=== PATIENT | female | born 1945 | race Caucasian/White ===

== ENCOUNTER 2019-05-10 11:50 | Outpatient (RCR) | payer MEDICARE, OTHER, SELFPAY ==
[2019-02-14 16:40] LABS: INR 2.6; Prothrombin Time 27.6 Seconds (11.1-14.7)
[2019-04-01 11:40] LABS: INR 2.1
[2019-05-10 12:24] LABS: INR 2.3; Prothrombin Time 24.7 Seconds (11.1-14.7)
== END 2019-05-15 23:59 | disposition home or self-care (01) ==
LOC: ANHLAB 11:50
PROVIDERS: Visit Provider Internal Medicine Cardiovascular Disease
DX: I48.91 Unspecified atrial fibrillation (principal); Z79.01 Long term (current) use of anticoagulants
CPT/HCPCS: 36415; 85610

== ENCOUNTER 2019-08-29 13:10 | Outpatient (RCR) | payer MEDICARE, OTHER, SELFPAY ==
[2019-06-02 10:34] LABS: INR 2.5; Prothrombin Time 26.3 Seconds (11.1-14.7)
[2019-07-11 14:56] LABS: INR 2.7; Prothrombin Time 27.9 Seconds (11.1-14.7)
[2019-08-29 13:43] LABS: INR 2.5; Prothrombin Time 26.4 Seconds (11.1-14.7)
== END 2019-08-31 23:59 | disposition home or self-care (01) ==
LOC: ANHLAB 13:10
PROVIDERS: Visit Provider Internal Medicine Cardiovascular Disease
DX: Z51.81 Encounter for therapeutic drug level monitoring (principal); I48.91 Unspecified atrial fibrillation; Z79.01 Long term (current) use of anticoagulants
CPT/HCPCS: 36415; 85610

== ENCOUNTER 2019-12-22 09:52 | Outpatient (RCR) | payer MEDICARE, OTHER, SELFPAY ==
[2019-10-11 16:41] LABS: INR 2.5; Prothrombin Time 26.9 Seconds (11.1-14.7)
[2019-10-16 15:55] LABS: INR 2.3; Prothrombin Time 24.6 Seconds (11.1-14.7)
[2019-10-24 13:32] LABS: INR 3.1; Prothrombin Time 31.1 Seconds (11.1-14.7)
[2019-11-04 12:47] LABS: INR 2.8; Prothrombin Time 29.1 Seconds (11.1-14.7)
[2019-12-05 16:25] LABS: INR 4.1; Prothrombin Time 39.5 Seconds (11.1-14.7)
[2019-12-22 10:49] LABS: Prothrombin Time 30.6 Seconds (11.1-14.7)
== END 2020-01-09 23:59 | disposition home or self-care (01) ==
LOC: ANHLAB 09:52
PROVIDERS: PCP Internal Medicine Cardiovascular Disease; Visit Provider Internal Medicine Cardiovascular Disease
DX: Z51.81 Encounter for therapeutic drug level monitoring (principal); I48.91 Unspecified atrial fibrillation; I69.398 Other sequelae of cerebral infarction; R20.9 Unspecified disturbances of skin sensation; Z79.01 Long term (current) use of anticoagulants
CPT/HCPCS: 36415; 85610

== ENCOUNTER 2020-02-13 13:01 | Outpatient (CLI) | payer MEDICARE, OTHER, SELFPAY ==
[2020-02-13 13:31] LABS: Add Urine Microscopic? NO; Appearance Urine Clear (Clear); Bilirubin Urine Negative (Negative); Blood Urine Negative (Negative); Color Urine Straw (Yellow); Glucose Urine UA Negative (Negative); Ketones Urine Negative (Negative); Leukocyte Esterase Ur Negative LEU/UL (NEGATIVE); Nitrate Urine Negative (Negative); Protein Urine Negative (Negative); Specific Grav Ur 1.006 (1.001-1.035); Squamous Epithelial Cell Urine Rare /hpf (Few); Urobilinogen Urine Negative mg/dL (<2.0); WBC Urine 0-3 /hpf (0-3)
== END 2020-02-13 13:02 | disposition home or self-care (01) ==
DX: N39.0 Urinary tract infection, site not specified (principal)
CPT/HCPCS: 36415; 81003; 85610; 87086

== ENCOUNTER 2020-03-16 10:43 | Emergency (ER) | payer MEDICARE, OTHER, SELFPAY ==
--- NOTE | ~2020-03-16 | CT_ITS ---
EXAMINATION: CT cervical spine wo con DATE: 03/16/2020 11:53 INDICATION: Neck pain post injury TECHNIQUE: Computed tomography (CT) of the cervical spine was performed without intravenous contrast. Automated exposure control and iterative reconstruction technique were employed. The dose-length pro duct was 130.92 mGy-cm. COMPARISON: None FINDINGS: Mild reversal of the normal cervical lordosis. 2-3 mm anterolisthesis C3 on C4. Vertebral body height s are normal. No fracture. Moderate disc height loss at C4-C5, C5-C6, C6-C7 and T2-T3 and mild disc h eight loss at C3-C4, C7-T1 and T1-T2. Atherosclerotic calcification is at the bilateral carotid bulbs . Cervical soft tissues are otherwise unremarkable. Visualized airway and apices of lungs are clear. The following disc levels are specifically discussed: C2-C3: Disc is bulging. There is mild bilateral uncovertebral joint osteoarthritis. There is old righ t and moderate left facet joint osteoarthritis. There is no neural foraminal stenosis. There is mild central canal stenosis. C3-C4: Disc is bulging. There is mild bilateral uncovertebral joint osteoarthritis. There is mild lef t and severe right facet joint osteoarthritis. There is mild right neural foraminal stenosis. There i s mild central canal stenosis. C4-C5: Disc is bulging. There is moderate bilateral uncovertebral joint osteoarthritis. There is mild bilateral facet joint osteoarthritis. There is minimal bilateral neural foraminal stenosis. There is mild central canal stenosis. C5-C6: Posterior disc osteophyte complex. There is severe bilateral uncovertebral joint osteoarthriti s. There is mild bilateral facet joint osteoarthritis. There is mild bilateral neural foraminal steno sis. There is mild central canal stenosis. C6-C7: Disc is bulging. There is mild right and moderate left uncovertebral joint osteoarthritis. The re is mild bilateral facet joint osteoarthritis. There is mild bilateral neural foraminal stenosis. T here is mild central canal stenosis. C7-T1: Disc is bulging. There is mild bilateral uncovertebral joint osteoarthritis. There is mild rig ht and severe left facet joint osteoarthritis. There is mild left and minimal right neural foraminal stenosis. There is mild central canal stenosis. IMPRESSION: 1. Moderate cervical spondylosis. No acute osseous abnormality. Reviewed, dictated and finalized at location A. 'S CUSTOM HAIR PIECE CONSULTANT
--- NOTE | ~2020-03-16 | CT_ITS ---
EXAMINATION: CT brain wo con DATE: 03/16/2020 11:53 INDICATION: Head injury while anticoagulated. TECHNIQUE: Computed tomography (CT) of the head was performed without intravenous contrast. Sagittal and coronal reconstructions were performed. The mA was adjusted according to patient size. Iterative reconstruction technique was employed. The dose-length product was 605.33 mGy-cm. COMPARISON: head CT dated 06/16/2018 FINDINGS: No calvarial fracture. 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 No acute in tracranial hemorrhage, acute infarction or abnormal extra axial fluid collection. There is mild scatt ered white matter hypoattenuation consistent with chronic small vessel ischemic disease. Ventricles are normal and symmetric. No mass/mass effect. Changes of bilateral intraocular lens replacement. The orbits and mastoid air cells are normal. Mild mucosal thickening the left ethmoid sinus. 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 IMPRESSION: 1. No fracture or acute intracranial process. 2. 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 Reviewed, dictated and finalized at location A. LOADER
[2020-03-16 10:54] VITALS: BP 154/94; PULSE 81; RESP 18; TEMP 36.6; O2SAT 97
--- NOTE | 2020-03-16 11:21 | ED.HEATRA ---
HPI - Head Injury General Chief complaint: Head Injury Stated complaint: head injury Time Seen by Provider: 03/16/20 10:53 Source: patient Mode of arrival: ambulatory Limitations: no limitations History of Present Illness HPI Narrative: This is a 75-year-old female that presents the emergency department after a head injury this morning. Reports she was in pain attention and accidentally walked into a door. Reports that she has felt nauseous. Reports she also is starting to feel some tingling around her lips. She called her maintenance controller who suggested she come to the ED due to being on Coumadin. Reports a mild headache and some pain in her neck. Patient denies vision changes, vomiting, numbness, or weakness. Related Data Home Medications Medication Instructions Recorded Confirmed aspirin [Adult Aspirin] 81 mg PO DAILY 03/16/20 beclomethasone dipropionate [Qvar] mcg INHALATION 03/16/20 cranberry 6,000 mg PO EVERY OTHER DAY 03/16/20 diltiazem HCl 120 mg PO HS 03/16/20 fluticasone propionate 2 spray INTRANASAL DAILY 03/16/20 insulin aspart U-100 [Novolog 1 sliding scale dose SUBCUT 03/16/20 U-100 Insulin aspart] USEASDIRECTD insulin glargine [Lantus U-100 8 unit SUBCUT TID 03/16/20 Insulin] levalbuterol tartrate [Xopenex HFA] 1 puff INHALATION PRN PRN 03/16/20 lisinopril 5 mg PO HS 03/16/20 metoclopramide HCl [Reglan] 10 mg PO TID PRN 03/16/20 omega 4-bsf-hoi-fish oil [Fish Oil] cap 03/16/20 omeprazole 40 mg PO BID 03/16/20 simvastatin [Zocor] 20 mg PO HS 03/16/20 warfarin [Coumadin] 2 mg PO DAILY 03/16/20 03/16/20 warfarin [Coumadin] 4 mg PO DAILY 03/16/20 Allergies Allergy/AdvReac Type Severity Reaction Status Date / Time amoxicillin Allergy Mild Dyspnea / Verified 03/16/20 10:56 SOB codeine Allergy Unknown Shakiness Verified 03/16/20 10:56 nitrofurantoin Allergy Abdominal Verified 03/16/20 10:56 [From Macrodantin] Pain Sulfa (Sulfonamide Allergy Abdominal Verified 03/16/20 10:56 Antibiotics) Pain SURGICAL TAPE Allergy Mild Unknown Uncoded 03/16/20 10:56 HEPATITIS B VACCINE Allergy Unknown Unknown Uncoded 03/16/20 10:56 Review of Systems Review of Systems: Narrative: CONSTITUTIONAL: Denies fever EYES: Denies visual changes GASTROINTESTINAL: Denies vomiting MUSCULOSKELETAL: Reports joint pain, and myalgia. NEUROLOGIC: Reports headache. Denies numbness, or weakness. All systems reviewed & are unremarkable except as noted in HPI and below PMFSH Past Medical History Medical History (Updated 03/16/20 @ 13:01 by Leslie Blandon PA-C) DVT (deep venous thrombosis) History of diabetes mellitus History of gastroesophageal reflux (GERD) History of hyperlipidemia History of hypertension Surgical History Surgical History (Updated 03/06/19 @ 21:51 by Vasquez Gaston PA-C) History of orthopedic surgery Social History Social History (Updated 03/06/19 @ 21:51 by Vasquez Gaston PA-C) Smoking status: Never smoker Gender identity (if verbalized by the patient): Female Exam Narrative: Exam Narrative: GENERAL: Well-appearing, well-nourished, and in no acute distress. HEAD: Normocephalic, atraumatic. EYES: Right pupil RRLA and EOMI. Left pupil is irregular, but reactive to light. Patient reports history of eye surgery on this eye ENT: Nares clear, no rhinorrhea or epistaxis. Mucous membranes moist. Oropharynx without tonsillar hypertrophy exudate or other lesions. Bilateral TMs pearly trevino non-bulging NECK: Supple. No adenopathy or masses. No carotid bruits or JVD CHEST: Clear to auscultation. No respiratory distress. No wheezes rales or rhonchi HEART: Regular rate and rhythm. No murmur heard. Normal peripheral pulses. EXTREMITIES: Normal range of motion. No edema. Strength equal in bilateral upper and lower extremities (5/5) SKIN: Warm, dry, no rash. NEURO: No focal deficits. Alert and oriented x3. Cranial nerves II through XII grossly intact PSYCH: Normal mood and affect C
[2020-03-16] MEDS: ONDANSETRON HCL ODT 4 MG TABLET PO (11:26)
[2020-03-16 12:26] VITALS: BP 133/73; PULSE 87; RESP 18; TEMP 36.3; O2SAT 99
[2020-03-16 12:28] VITALS: O2SAT 97
--- NOTE | 2020-03-16 12:33 | PC.NURSE ---
States she is no longer having nausea.
[2020-03-16 13:03] VITALS: BP 124/70; PULSE 82; RESP 16; O2SAT 97
== END 2020-03-16 13:03 | disposition home or self-care (01) ==
PROVIDERS: Emergency Provider Emergency Medicine; PCP Internal Medicine
DX: S09.90XA Unspecified injury of head, initial encounter (principal); W22.8XXA Striking against or struck by other objects, initial encounter; E11.9 Type 2 diabetes mellitus without complications; K21.9 Gastro-esophageal reflux disease without esophagitis; E78.5 Hyperlipidemia, unspecified; I10 Essential (primary) hypertension; Z86.718 Personal history of other venous thrombosis and embolism; Z79.01 Long term (current) use of anticoagulants
CPT/HCPCS: 70450; 72125; 99284; A9270

== ENCOUNTER 2020-04-06 13:25 | Outpatient (RCR) | payer MEDICARE, OTHER, SELFPAY ==
[2020-01-17 18:20] LABS: Prothrombin Time 30.4 Seconds (11.1-14.7)
[2020-02-13 13:33] LABS: INR 3.2; Prothrombin Time 33.1 Seconds (11.1-14.7)
[2020-03-02 13:41] LABS: INR 2.5; Prothrombin Time 27.7 Seconds (11.1-14.7)
[2020-04-06 14:06] LABS: INR 2.8
== END 2020-04-16 23:59 | disposition home or self-care (01) ==
LOC: ANHLAB 13:25
PROVIDERS: PCP Internal Medicine Cardiovascular Disease; Visit Provider Internal Medicine Cardiovascular Disease
DX: Z51.81 Encounter for therapeutic drug level monitoring (principal); I48.91 Unspecified atrial fibrillation; Z79.01 Long term (current) use of anticoagulants
CPT/HCPCS: 36415; 85610

== ENCOUNTER 2020-07-25 17:00 | Outpatient (RCR) | payer MEDICARE, SELFPAY ==
[2020-05-21 17:15] LABS: Prothrombin Time 31.4 Seconds (11.1-14.7)
[2020-06-29 12:37] LABS: INR 3.3; Prothrombin Time 33.7 Seconds (11.1-14.7)
[2020-07-12 13:06] LABS: INR 2.9; Prothrombin Time 31.2 Seconds (11.1-14.7)
[2020-07-25 17:46] LABS: INR 2.8
== END 2020-08-19 23:59 | disposition home or self-care (01) ==
LOC: ANHLAB 17:00
PROVIDERS: PCP Internal Medicine; Visit Provider Internal Medicine Cardiovascular Disease
DX: Z51.81 Encounter for therapeutic drug level monitoring (principal); I69.398 Other sequelae of cerebral infarction; R20.9 Unspecified disturbances of skin sensation; Z79.01 Long term (current) use of anticoagulants
CPT/HCPCS: 36415; 85610

== ENCOUNTER 2020-09-24 17:07 | Outpatient (RCR) | payer MEDICARE, SELFPAY ==
[2020-08-24 13:01] LABS: INR 2.1; Prothrombin Time 24.5 Seconds (11.1-14.7)
[2020-09-24 17:49] LABS: INR 2.8; Prothrombin Time 29.8 Seconds (11.1-14.7)
== END 2020-11-22 23:59 | disposition home or self-care (01) ==
LOC: ANHLAB 17:07
PROVIDERS: PCP Internal Medicine; Visit Provider Internal Medicine Cardiovascular Disease
DX: Z51.81 Encounter for therapeutic drug level monitoring (principal); I69.398 Other sequelae of cerebral infarction; R20.9 Unspecified disturbances of skin sensation; Z79.01 Long term (current) use of anticoagulants
CPT/HCPCS: 36415; 85610

== ENCOUNTER 2021-01-16 17:38 | Outpatient (RCR) | payer MEDICARE, SELFPAY ==
[2020-10-23 17:10] LABS: INR 3.3; Prothrombin Time 32.2 Seconds (11.1-14.7)
[2020-11-07 16:35] LABS: INR 3.3; Prothrombin Time 32.6 Seconds (11.1-14.7)
[2020-11-20 18:08] LABS: INR 3.6; Prothrombin Time 34.7 Seconds (11.1-14.7)
[2020-12-03 18:13] LABS: INR 2.2; Prothrombin Time 24.2 Seconds (11.1-14.7)
[2020-12-18 18:32] LABS: INR 2.7; Prothrombin Time 27.6 Seconds (11.1-14.7)
[2021-01-16 18:14] LABS: Prothrombin Time 37.5 Seconds (11.1-14.7)
== END 2021-01-21 23:59 | disposition home or self-care (01) ==
LOC: ANHLAB 17:38
PROVIDERS: PCP Internal Medicine; Visit Provider Internal Medicine Cardiovascular Disease
DX: I69.398 Other sequelae of cerebral infarction (principal); R20.9 Unspecified disturbances of skin sensation; Z79.01 Long term (current) use of anticoagulants
CPT/HCPCS: 36415; 85610

== ENCOUNTER 2021-02-24 12:52 | Outpatient (CLI) | payer MEDICARE, SELFPAY ==
[2021-02-24 13:40] LABS: Anion Gap 4 mmol/L (8-16); Blood Urea Nitrogen 25 mg/dL (7-17); Calcium 9.5 mg/dL (8.4-10.2); Carbon Dioxide 28 mmol/L (22-30); Chloride 96 mmol/L (98-107); Estimated Glomerular Filt Rate 54; Glucose 279 mg/dL (65-110); Magnesium 1.8 mg/dL (1.6-2.3); Potassium 5.5 mmol/L (3.4-5.0); Sodium 128 mmol/L (137-145)
== END 2021-02-24 12:53 | disposition home or self-care (01) ==
PROVIDERS: PCP Internal Medicine
DX: R25.2 Cramp and spasm (principal)
CPT/HCPCS: 36415; 80048; 83735

== ENCOUNTER 2021-03-10 12:54 | Outpatient (CLI) | payer MEDICARE, SELFPAY ==
[2021-03-10 14:10] LABS: Anion Gap 4 mmol/L (8-16); Blood Urea Nitrogen 16 mg/dL (7-17); Calcium 9.4 mg/dL (8.4-10.2); Carbon Dioxide 29 mmol/L (22-30); Chloride 104 mmol/L (98-107); Estimated Glomerular Filt Rate > 60; Glucose 102 mg/dL (65-110); Potassium 4.8 mmol/L (3.4-5.0); Sodium 137 mmol/L (137-145)
== END 2021-03-10 12:55 | disposition home or self-care (01) ==
LOC: ANHLAB 13:07
PROVIDERS: PCP Internal Medicine
DX: E78.5 Hyperlipidemia, unspecified (principal); E10.9 Type 1 diabetes mellitus without complications; I25.10 Atherosclerotic heart disease of native coronary artery without angina pectoris
CPT/HCPCS: 36415; 80048

== ENCOUNTER 2021-04-21 17:15 | Outpatient (RCR) | payer MEDICARE, SELFPAY ==
[2021-01-23 13:16] LABS: INR 4.3; Prothrombin Time 40.2 Seconds (11.1-14.7)
[2021-01-30 18:04] LABS: INR 2.7; Prothrombin Time 27.7 Seconds (11.1-14.7)
[2021-02-24 13:57] LABS: INR 2.4; Prothrombin Time 25.7 Seconds (11.1-14.7)
[2021-03-25 12:29] LABS: INR 1.7
[2021-04-21 17:48] LABS: INR 2.3; Prothrombin Time 24.5 Seconds (11.1-14.7)
== END 2021-04-23 23:59 | disposition home or self-care (01) ==
LOC: ANHLAB 17:15
PROVIDERS: PCP Internal Medicine; Visit Provider Internal Medicine Cardiovascular Disease
DX: Z51.81 Encounter for therapeutic drug level monitoring (principal); Z79.01 Long term (current) use of anticoagulants
CPT/HCPCS: 36415; 80048; 83735; 85610

== ENCOUNTER 2021-05-27 11:15 | Emergency (ER) | payer MEDICARE, SELFPAY ==
[2021-05-27] VITALS (14 sets, daily range): BP systolic 125–138; BP diastolic 66–82; PULSE 65–84; RESP 14–24; TEMP 36.5; O2SAT 82–100
--- NOTE | ~2021-05-27 | XR_ITS ---
EXAMINATION: XR chest 2V EXAM DATE: 05/27/2021 12:37 INDICATION: pacemaker, tingling, chest discomfort. TECHNIQUE: Frontal and lateral projections of the chest obtained and reviewed. Comparison is made to prior examination from 06/16/2018. FINDINGS: There is a dual lead pacemaker/AICD seen with leads projecting over the expected locations of the right atrial appendage and right ventricle. The lungs are hyperinflated which can be seen wit h chronic obstructive pulmonary disease (a clinical diagnosis of functional impairment), but is not d iagnostic of it. Cardiomediastinal silhouette is normal. No confluent consolidation, pneumothorax or pleural effusion suspected. There are no osseous abnormalities identified. IMPRESSION: Chronic hyperinflation. Reviewed, dictated and finalized at location A. RIAL HANDLING CREW SUPERVISOR IMPRESSION: Chronic hyperinflation.
--- NOTE | 2021-05-27 11:36 | PC.NURSE ---
Patient states that she was at her doctor's office this morning and had a spot removed from her hand. physician used lidocaine as numbing agent to hand. reports that after she left she went to get blood drawn and while waiting she noticed that she had some tingling and numbness to lips. denies any difficulty breathing or any other neurological deficits. states she took a librium [employer] to ED d/t hx of anxiety
--- NOTE | 2021-05-27 12:26 | ECG_ITS ---
Measurements Intervals [place] Rate: 75 P: 77 TX: 159 QRS: 15 QRSD: 85 T: 63 QT: 405 QTc: 454 Interpretive Statements SINUS RHYTHM DELAYED PRECORDIAL R/S TRANSITION BORDERLINE ECG Electronically Signed On 05-27-2021 13:55:06 SHAKER PLATE OPERATOR by Chapito Oliver D.O.
--- NOTE | 2021-05-27 12:57 | ED.ALLEREA ---
HPI - Allergic Reaction General Chief complaint: Allergic Reaction Stated complaint: Possible Allergic Reaction Time Seen by Provider: 05/27/21 12:03 Source: patient and RN notes reviewed Mode of arrival: ambulatory Limitations: no limitations History of Present Illness HPI narrative: This is a 76 year old female with history of diabetes mellitus, pacemaker, chronic anticoagulation who presents for evaluation of possible allergic reaction. She went to see her metallographic technician today to remove a lesion from her right hand. She reports they used lidocaine during the procedure and she was fine. She was at hospital 30 minutes later after getting blood drawn, and she developed tingling to her lips and tongue. She denies associated swelling, rash, itching, chest pain, coughing or shortness of breath. She states this episodes reminds of previous episodes she had before her pacemaker placement. 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 Today she did not experience lightheadedness. She is also not sure if this was caused by lidocaine. Related Data Home Medications Medication Instructions Recorded Confirmed aspirin [Adult Aspirin] 81 mg PO DAILY 03/16/20 beclomethasone dipropionate [Qvar] mcg INHALATION 03/16/20 cranberry 6,000 mg PO EVERY OTHER DAY 03/16/20 diltiazem HCl 120 mg PO HS 03/16/20 fluticasone propionate 2 spray INTRANASAL DAILY 03/16/20 insulin aspart U-100 [Novolog 1 sliding scale dose SUBCUT 03/16/20 U-100 Insulin aspart] USEASDIRECTD insulin glargine [Lantus U-100 8 unit SUBCUT TID 03/16/20 Insulin] levalbuterol tartrate [Xopenex HFA] 1 puff INHALATION PRN PRN 03/16/20 lisinopril 5 mg PO HS 03/16/20 metoclopramide HCl [Reglan] 10 mg PO TID PRN 03/16/20 omega 0-npe-rxe-fish oil [Fish Oil] cap 03/16/20 omeprazole 40 mg PO BID 03/16/20 simvastatin [Zocor] 20 mg PO HS 03/16/20 warfarin [Coumadin] 2 mg PO DAILY 03/16/20 03/16/20 warfarin [Coumadin] 4 mg PO DAILY 03/16/20 Allergies Allergy/AdvReac Type Severity Reaction Status Date / Time amoxicillin Allergy Mild Dyspnea / Verified 05/27/21 11:32 SOB codeine Allergy Unknown Shakiness Verified 05/27/21 11:32 nitrofurantoin Allergy Abdominal Verified 05/27/21 11:32 [From Macrodantin] Pain Sulfa (Sulfonamide Allergy Abdominal Verified 05/27/21 11:32 Antibiotics) Pain SURGICAL TAPE Allergy Mild Unknown Uncoded 05/27/21 11:32 HEPATITIS B VACCINE Allergy Unknown Unknown Uncoded 05/27/21 11:32 Review of Systems Review of Systems: All systems reviewed & are unremarkable except as noted in HPI and below Constitutional: Constitutional: Denies chills, Denies fever(s) and Denies weakness ENT: Denies sore throat Cardiovascular: Cardiovascular: Denies chest pain Respiratory: Respiratory: Denies cough and Denies dyspnea Gastrointestinal: Gastrointestinal: Denies abdominal pain, Denies diarrhea, Denies nausea and Denies vomiting Neurologic: Denies dizziness and Denies headache(s) [facility] Past Medical History Medical History (Updated 05/27/21 @ 14:32 by Jo Ann Mcgregor MD) DVT (deep venous thrombosis) History of diabetes mellitus History of gastroesophageal reflux (GERD) History of hyperlipidemia History of hypertension Pacemaker Surgical History Surgical History (Updated 03/06/19 @ 21:51 by Vasquez Gaston PA-C) History of orthopedic surgery Social History Social History (Updated 03/06/19 @ 21:51 by Vasquez Gaston PA-C) Smoking status: Never smoker Gender identity (if verbalized by the patient): Female Exam Const: General: no acute distress and alert Orientation/consciousness: patient oriented x3 HENMT: Head: normocephalic and atraumatic General nose exam: Normal external nose present Face and sinus: normal facial exam, sinuses nontender and face symmetric Mouth: Yes Normal oral and palatal mucosa present, Yes
[2021-05-27 13:11] LABS: Alanine Aminotransferase 22 U/L (4-35); Albumin Level 4.4 g/dL (3.5-5.1); Alkaline Phosphatase 79 U/L (38-126); Anion Gap 5 mmol/L (8-16); Aspartate Amino Transferase 30 U/L (14-36); Bilirubin,Total 0.5 mg/dL (0.2-1.3); Blood Urea Nitrogen 33 mg/dL (7-17); Calcium 9.1 mg/dL (8.4-10.2); Carbon Dioxide 27 mmol/L (22-30); Chloride 101 mmol/L (98-107); Estimated Glomerular Filt Rate > 60; Glucose 181 mg/dL (65-110); Potassium 4.8 mmol/L (3.4-5.0); Sodium 133 mmol/L (137-145)
[2021-05-27 13:18] LABS: Basophils Percent Auto 0.4 % (0.2-1.2); Eosinophils Absolute Auto 0.3 K/mm3 (0-0.3); Eosinophils Percent Auto 4.6 % (0-4.4); Hematocrit 36.4 % (37.0-47.0); Hemoglobin 12.4 g/dL (12.0-15.0); Immature Granulocyte Absolute 0.02 K/mm3 (0.00-0.031); Immature Granulocyte Percent A 0.3 % (0-0.5); Lymphocytes Absolute Auto 2.14 K/mm3 (0.9-3.2); Lymphocytes Percent Auto 29.1 % (18.3-44.2); Mean Corpuscular HGB Conc 34.1 g/dl (32-36); Mean Corpuscular Hemoglobin 30.7 pg (26-34); Mean Corpuscular Volume 90.1 fl (80-100); Mean Platelet Volume 9.1 fl (7.4-10.4); Monocytes Absolute Auto 0.7 K/mm3 (0.1-0.6); Monocytes Percent Auto 9.4 % (2.6-8.5); Neutrophils Absolute Auto 4.1 K/mm3 (1.3-6.7); Neutrophils Percent Auto 56.2 % (45.5-73.1); Platelet Count Result 277 k/mm3 (150-375); Red Blood Count 4.04 M/mm3 (4.2-5.4); Red Cell Distribution Width 12.9 % (11.5-14.5); White Blood Count 7.4 K/mm3 (4.5-10.0)
== END 2021-05-27 14:41 | disposition home or self-care (01) ==
PROVIDERS: Emergency Provider General Practice
DX: R20.2 Paresthesia of skin (principal); E11.9 Type 2 diabetes mellitus without complications; I10 Essential (primary) hypertension; E78.5 Hyperlipidemia, unspecified; K21.9 Gastro-esophageal reflux disease without esophagitis; Z86.718 Personal history of other venous thrombosis and embolism; Z95.0 Presence of cardiac pacemaker; Z79.4 Long term (current) use of insulin; Z79.01 Long term (current) use of anticoagulants; Z79.82 Long term (current) use of aspirin; R94.31 Abnormal electrocardiogram [ECG] [EKG]
CPT/HCPCS: 36415; 71046; 80053; 83735; 85025; 85610; 93005; 99284

== ENCOUNTER 2021-08-01 13:00 | Outpatient (RCR) | payer MEDICARE, SELFPAY ==
[2021-06-09 11:36] LABS: INR 1.6; Prothrombin Time 18.2 Seconds (11.1-14.7)
[2021-06-16 08:38] LABS: INR 1.2; Prothrombin Time 15.1 Seconds (11.1-14.7)
[2021-06-18 08:15] LABS: INR 1.3; Prothrombin Time 15.7 Seconds (11.1-14.7)
[2021-06-20 08:49] LABS: INR 1.5; Prothrombin Time 17.9 Seconds (11.1-14.7)
[2021-06-23 08:43] LABS: INR 2.2; Prothrombin Time 23.4 Seconds (11.1-14.7)
[2021-06-27 10:06] LABS: INR 2.4; Prothrombin Time 25.5 Seconds (11.1-14.7)
[2021-07-04 08:43] LABS: INR 2.7; Prothrombin Time 27.8 Seconds (11.1-14.7)
[2021-07-18 12:42] LABS: INR 2.2; Prothrombin Time 23.9 Seconds (11.1-14.7)
[2021-08-01 13:32] LABS: INR 2.6; Prothrombin Time 26.7 Seconds (11.1-14.7)
== END 2021-08-25 23:59 | disposition home or self-care (01) ==
LOC: ANHLAB 13:00
PROVIDERS: Visit Provider Internal Medicine Cardiovascular Disease
DX: Z51.81 Encounter for therapeutic drug level monitoring (principal); Z79.01 Long term (current) use of anticoagulants
CPT/HCPCS: 36415; 85610

== ENCOUNTER 2021-11-14 12:20 | Outpatient (CLI) | payer MEDICARE, SELFPAY ==
[2021-11-14 12:47] LABS: Appearance Urine Clear (Clear); Bilirubin Urine Negative (Negative); Blood Urine Negative (Negative); Color Urine Yellow (Yellow); Glucose Urine UA Negative (Negative); Ketones Urine Negative (Negative); Leukocyte Esterase Ur Negative LEU/UL (Negative); Nitrate Urine Negative (Negative); Protein Urine Negative (Negative); Urobilinogen Urine 0.2 mg/dL (<2.0)
[2021-11-14 12:58] LABS: Add Urine Microscopic? NO
== END 2021-11-14 12:21 | disposition home or self-care (01) ==
LOC: ANHLAB 12:25
PROVIDERS: Visit Provider Internal Medicine Endocrinology, Diabetes & Metabolism
DX: R30.0 Dysuria (principal)
CPT/HCPCS: 81003

== ENCOUNTER 2021-11-29 14:04 | Emergency (ER) | payer MEDICARE, SELFPAY ==
--- NOTE | ~2021-11-29 | XR_ITS ---
EXAM: XR abdomen/kub 1V DATE: 11/29/2021 16:05 HISTORY: eval for FB . COMPARISON: None available. FINDINGS: Clear lung bases. Partially visualized pacer wires. Normal bowel gas pattern. No organomeg balbina. No abnormal abdominal calcification. Osteopenia. Lumbar scoliosis. IMPRESSION: No radiopaque foreign body detected. Reviewed, dictated and finalized at location K.
[2021-11-29 14:33] VITALS: BP 117/95; PULSE 79; RESP 20; TEMP 36.7; O2SAT 100
--- NOTE | 2021-11-29 16:51 | ED.GENADULT ---
HPI - General Adult General Chief complaint: Skin/Abscess/Foreign Body Stated complaint: glucometer stuck in abdomen Time Seen by Provider: 11/29/21 15:52 History of Present Illness HPI narrative: 76-year-old female presented to the emergency department for evaluation of a suspected foreign body in her abdomen. Patient states her Dexcom needle was missing after she removed to the device from her abdomen. Patient has no abdominal tenderness. No foreign body was detected on x-ray. Related Data Home Medications Medication Instructions Recorded Confirmed aspirin 81 mg tablet 81 mg PO DAILY 03/16/20 beclomethasone dipropionate 80 mcg inhalation 03/16/20 mcg/actuation aerosol inhaler cranberry 1,000 mg capsule 6,000 mg PO EVERY OTHER DAY 03/16/20 diltiazem HCl 120 mg 120 mg PO HS 03/16/20 capsule,extended release 24 hr, controlled fluticasone propionate 50 2 spray intranasal DAILY 03/16/20 mcg/actuation nasal spray,suspension insulin aspart U-100 100 unit/mL 1 sliding scale dose subcut 03/16/20 subcutaneous solution (Novolog USEASDIRECTD U-100 Insulin aspart) insulin glargine 100 unit/mL 8 unit subcut TID 03/16/20 subcutaneous solution (Lantus U-100 Insulin) levalbuterol tartrate 45 1 puff inhalation PRN PRN 03/16/20 mcg/actuation aerosol inhaler Shortness Of Breath (Xopenex HFA) lisinopril 5 mg tablet 5 mg PO HS 03/16/20 metoclopramide HCl 10 mg tablet 10 mg PO TID PRN Nausea 03/16/20 (Reglan) omega 3-qbw-mqr-fish oil 1,200 mg cap 03/16/20 (144 mg-216 mg) capsule (Fish Oil) omeprazole 40 mg capsule,delayed 40 mg PO BID 03/16/20 release simvastatin 20 mg tablet (Zocor) 20 mg PO HS 03/16/20 warfarin 2 mg tablet 2 mg PO DAILY 03/16/20 03/16/20 warfarin 4 mg tablet 4 mg PO DAILY 03/16/20 Allergies Allergy/AdvReac Type Severity Reaction Status Date / Time amoxicillin Allergy Mild Dyspnea / Verified 05/27/21 11:32 SOB codeine Allergy Unknown Shakiness Verified 05/27/21 11:32 nitrofurantoin Allergy Abdominal Verified 05/27/21 11:32 [From Macrodantin] Pain Sulfa (Sulfonamide Allergy Abdominal Verified 05/27/21 11:32 Antibiotics) Pain SURGICAL TAPE Allergy Mild Unknown Uncoded 05/27/21 11:32 HEPATITIS B VACCINE Allergy Unknown Unknown Uncoded 05/27/21 11:32 Review of Systems Review of Systems: CONSTITUTIONAL: Denies fever, chills, or sweats. EYES: Denies visual changes, redness, or discharge. ENT: Denies rhinorrhea, congestion, sore throat, or otalgia. CARDIOVASCULAR: Denies chest pain, palpitations, or edema. RESPIRATORY: Denies cough or dyspnea. GASTROINTESTINAL: Denies abdominal pain, nausea, vomiting, or diarrhea. GENITOURINARY: Denies dysuria or hematuria. SKIN: Ecchymosis on abdominal wall MUSCULOSKELETAL: Denies back pain, joint pain, or myalgia. NEUROLOGIC: Denies headache, numbness, or weakness. [facility] Past Medical History Medical History (Updated 11/29/21 @ 16:56 by Han Coyne MD) DVT (deep venous thrombosis) History of diabetes mellitus History of gastroesophageal reflux (GERD) History of hyperlipidemia History of hypertension Pacemaker Surgical History Surgical History (Updated 03/06/19 @ 21:51 by Vasquez Gaston, BRANDON) History of orthopedic surgery Social History Social History (Updated 03/06/19 @ 21:51 by Vasquez Gaston, PAForrestC) Smoking status: Never smoker Gender identity (if verbalized by the patient): Female Exam Narrative: APPEARANCE: Well appearing, no pain, no distress, well-nourished. HEAD: normocephalic, atraumatic. EYES: PERRLA/EOMI, conjunctivae clear. NOSE: Normal no drainage EARS:TMS clear with good light reflex. THROAT: Pharynx clear, no exudate. NECK: Supple. No adenopathy, no masses. RESPIRATORY: Airway patent, respirations nonlabored. Clear to auscultation bilaterally, no rales, rhonchi, wheezing. CARDIOVASCULAR: Regular rate and rhythm without murmurs rubs or gallops. ABDOMINAL: Soft, nont
== END 2021-11-29 17:05 | disposition home or self-care (01) ==
PROVIDERS: Emergency Provider Emergency Medicine
DX: Z04.89 Encounter for examination and observation for other specified reasons (principal); E11.9 Type 2 diabetes mellitus without complications; E78.5 Hyperlipidemia, unspecified; I10 Essential (primary) hypertension; K21.9 Gastro-esophageal reflux disease without esophagitis; Z95.0 Presence of cardiac pacemaker; Z86.718 Personal history of other venous thrombosis and embolism; Z79.01 Long term (current) use of anticoagulants; Z79.82 Long term (current) use of aspirin; Z79.4 Long term (current) use of insulin
CPT/HCPCS: 36415; 74018; 85610; 99283

== ENCOUNTER 2021-12-09 09:45 | Outpatient (RCR) | payer MEDICARE, SELFPAY ==
[2021-09-12 12:14] LABS: INR 3.2; Prothrombin Time 31.4 Seconds (11.1-14.7)
[2021-09-26 11:35] LABS: INR 2.7; Prothrombin Time 28.2 Seconds (11.1-14.7)
[2021-10-21 15:47] LABS: INR 2.7; Prothrombin Time 27.4 Seconds (11.1-14.7)
[2021-11-14 12:55] LABS: INR 2.7; Prothrombin Time 28.1 Seconds (11.1-14.7)
[2021-11-28 14:01] LABS: INR 2.6; Prothrombin Time 26.6 Seconds (11.1-14.7)
[2021-11-29 12:23] LABS: INR 1.7; Prothrombin Time 19.1 Seconds (11.1-14.7)
[2021-12-01 08:05] LABS: INR 1.1; Prothrombin Time 14.1 Seconds (11.1-14.7)
[2021-12-06 09:46] LABS: INR 1.4; Prothrombin Time 16.3 Seconds (11.1-14.7)
[2021-12-09 10:29] LABS: INR 1.9; Prothrombin Time 20.8 Seconds (11.1-14.7)
== END 2021-12-11 23:59 | disposition home or self-care (01) ==
LOC: ANHLAB 09:45
PROVIDERS: Visit Provider Internal Medicine Cardiovascular Disease
DX: Z51.81 Encounter for therapeutic drug level monitoring (principal); Z79.01 Long term (current) use of anticoagulants
CPT/HCPCS: 36415; 81003; 85610

== ENCOUNTER 2022-02-25 15:59 | Outpatient (RCR) | payer MEDICARE, SELFPAY ==
[2021-12-12 11:27] LABS: INR 2.3; Prothrombin Time 24.2 Seconds (11.1-14.7)
[2022-01-02 15:15] LABS: INR 2.7; Prothrombin Time 27.5 Seconds (11.1-14.7)
[2022-01-30 16:22] LABS: INR 3.7; Prothrombin Time 35.5 Seconds (11.1-14.7)
[2022-02-10 15:14] LABS: INR 2.3; Prothrombin Time 24.8 Seconds (11.1-14.7)
[2022-02-25 16:28] LABS: INR 2.6; Prothrombin Time 26.8 Seconds (11.1-14.7)
== END 2022-03-12 23:59 | disposition home or self-care (01) ==
LOC: ANHLAB 15:59
PROVIDERS: PCP Internal Medicine Cardiovascular Disease; Visit Provider Internal Medicine Cardiovascular Disease
DX: Z51.81 Encounter for therapeutic drug level monitoring (principal); I63.9 Cerebral infarction, unspecified; Z98.890 Other specified postprocedural states; Z79.01 Long term (current) use of anticoagulants
CPT/HCPCS: 36415; 85610

== ENCOUNTER 2022-06-23 13:06 | Outpatient (RCR) | payer MEDICARE, SELFPAY ==
[2022-04-04 12:27] LABS: INR 3.2; Prothrombin Time 32.1 Seconds (11.1-14.7)
[2022-04-17 15:39] LABS: INR 2.6; Prothrombin Time 26.7 Seconds (11.1-14.7)
[2022-05-22 15:03] LABS: INR 2.2; Prothrombin Time 24.1 Seconds (11.1-14.7)
[2022-06-23 14:14] LABS: INR 2.6; Prothrombin Time 26.9 Seconds (11.1-14.7)
== END 2022-07-03 23:59 | disposition home or self-care (01) ==
LOC: ANHLAB 13:06
PROVIDERS: PCP Internal Medicine Cardiovascular Disease; Visit Provider Internal Medicine Cardiovascular Disease
DX: Z51.81 Encounter for therapeutic drug level monitoring (principal); I63.9 Cerebral infarction, unspecified; Z98.890 Other specified postprocedural states; Z79.01 Long term (current) use of anticoagulants
CPT/HCPCS: 36415; 85610

== ENCOUNTER 2022-07-23 01:24 | Day surgery (SDC) | payer MEDICARE, SELFPAY ==
[2022-07-22 16:54] VITALS: BMI 21.7
[2022-07-23 07:25] VITALS: BP 143/69; PULSE 74; RESP 12; TEMP 36.5; O2SAT 98; BMI 21.1
--- NOTE | 2022-07-23 07:34 | WPDMODSED ---
Moderate Sedation Note-Pt Data Patient Data Diagnosis: Permanent pacemaker at [place] Present Complaint: No complaints Procedure to be performed/Plan: Pacemaker generator change Allergies Allergy/AdvReac Type Severity Reaction Status Date / Time amoxicillin Allergy Mild Dyspnea / Verified 07/23/22 07:22 SOB codeine Allergy Unknown Shakiness Verified 07/23/22 07:22 nitrofurantoin Allergy Abdominal Verified 07/23/22 07:22 [From Macrodantin] Pain Sulfa (Sulfonamide Allergy Abdominal Verified 07/23/22 07:22 Antibiotics) Pain SURGICAL TAPE Allergy Mild Unknown Uncoded 05/27/21 11:32 HEPATITIS B VACCINE Allergy Unknown Unknown Uncoded 05/27/21 11:32 Home Medications Medication Instructions Recorded Confirmed Type aspirin 81 mg tablet 81 mg PO DAILY 03/16/20 07/22/22 History diltiazem HCl 120 mg 120 mg PO HS 03/16/20 07/22/22 History capsule,extended release 24 hr, controlled fluticasone propionate 50 2 spray intranasal DAILY PRN 03/16/20 07/22/22 History mcg/actuation nasal Congestion spray,suspension insulin aspart U-100 100 unit/mL 1 sliding scale dose subcut 03/16/20 07/22/22 History subcutaneous solution (Novolog USEASDIRECTD U-100 Insulin aspart) insulin glargine 100 unit/mL 11 unit subcut HS 03/16/20 07/22/22 History subcutaneous solution (Lantus U-100 Insulin) lisinopril 5 mg tablet 5 mg PO HS 03/16/20 07/22/22 History omega 3-eze-lny-fish oil 1,200 mg 1 cap PO BID 03/16/20 07/22/22 History (144 mg-216 mg) capsule (Fish Oil) omeprazole 40 mg capsule,delayed 40 mg PO BID PRN Indigestion 03/16/20 07/22/22 History release simvastatin 20 mg tablet (Zocor) 20 mg PO HS 03/16/20 07/22/22 History warfarin 2 mg tablet 2 mg PO DAILY 03/16/20 07/22/22 History warfarin 4 mg tablet 4 mg PO DAILY 03/16/20 07/22/22 History B zqswlsy-H-zvumz acid-Zn 500 1 tablet PO DAILY 07/22/22 07/22/22 History mg-400 mcg-15 mg tablet carboxymethylcellulose sodium 1 % 1 drp EACH EYE DAILY 07/22/22 07/22/22 History eye liquid gel drops chlordiazepoxide HCl 5 mg capsule 5 - 10 mg PO TID PRN Anxiety 07/22/22 07/22/22 History cholecalciferol (vitamin D3) 50 50 mcg PO DAILY 07/22/22 07/22/22 History mcg (2,000 unit) tablet cranberry concentrate-ascorbic 1 cap PO DAILY 07/22/22 07/22/22 History acid 4,200 mg-20 mg capsule cyanocobalamin (vitamin B-12) 500 500 mcg PO DAILY 07/22/22 07/22/22 History mcg tablet cyclobenzaprine 5 mg tablet 5 mg PO TID PRN Back Pain 07/22/22 07/22/22 History sodium chloride 5 % eye drops 1 drp EACH EYE DAILY 07/22/22 07/22/22 History (Kourtney 128) vitamin A,C,E-co U06-iwuzog vit#6 1 tablet PO DAILY 07/22/22 07/22/22 History 5,000 unit-60 mg-30 mg-7.5 mg tablet Sedation/Anesthesia: No previous sedation/anesthesia problems (including family history). [facility] Past Medical History Medical History (Updated 11/30/21 @ 00:00 by Nery Noyola) DVT (deep venous thrombosis) History of diabetes mellitus History of gastroesophageal reflux (GERD) History of hyperlipidemia History of hypertension Pacemaker Surgical History Surgical History (Updated 03/06/19 @ 21:51 by Vasquez Gaston, BRANDON) History of orthopedic surgery Social History Social History (Updated 03/06/19 @ 21:51 by Vasquez Gaston, BRANDON) Smoking packs per day: 0.5 Smoking cigarettes per day: 10.0 Years smoked: 20 Smoking pack-years: 10.00 Smoking status: Former smoker Tobacco type: cigarettes Additional smoking assessment comments: quit 1980 Alcohol intake: never Substance use: never Substance use type: does not use Living arrangements: with family Gender identity (if verbalized by the patient): Female Spiritual care concerns: No Mod Sed Physical Exam Physical Exam Pre Procedural Exam: Normal: Appearance, Neck, Throat, Airway, Lungs, Heart Size, Heart Rate, Heart Rhythm, Neuro Exam and Extremities Hours since solid foods: 12 Hours since li
[2022-07-23 07:35] LABS: Basophils Percent Auto 0.7 % (0.2-1.2); Eosinophils Absolute Auto 0.2 K/mm3 (0-0.3); Eosinophils Percent Auto 3.4 % (0-4.4); Hematocrit 34.2 % (37.0-47.0); Hemoglobin 11.5 g/dL (12.0-15.0); Immature Granulocyte Absolute 0.02 K/mm3 (0.00-0.031); Immature Granulocyte Percent A 0.3 % (0-0.5); Lymphocytes Absolute Auto 1.76 K/mm3 (0.9-3.2); Lymphocytes Percent Auto 28.8 % (18.3-44.2); Mean Corpuscular HGB Conc 33.6 g/dl (32-36); Mean Corpuscular Hemoglobin 29.6 pg (26-34); Mean Corpuscular Volume 87.9 fl (80-100); Mean Platelet Volume 8.6 fl (7.4-10.4); Monocytes Absolute Auto 0.6 K/mm3 (0.1-0.6); Monocytes Percent Auto 9.3 % (2.6-8.5); Neutrophils Absolute Auto 3.5 K/mm3 (1.3-6.7); Neutrophils Percent Auto 57.5 % (45.5-73.1); Platelet Count Result 297 k/mm3 (150-375); Red Blood Count 3.89 M/mm3 (4.2-5.4); Red Cell Distribution Width 13.2 % (11.5-14.5); White Blood Count 6.1 K/mm3 (4.5-10.0)
[2022-07-23 07:44] LABS: Alanine Aminotransferase 26 U/L (6-35); Alkaline Phosphatase 72 U/L (38-126); Anion Gap 5 mmol/L (8-16); Aspartate Amino Transferase 31 U/L (14-36); Bilirubin,Total 0.8 mg/dL (0.2-1.3); Blood Urea Nitrogen 19 mg/dL (7-17); Calcium 8.6 mg/dL (8.4-10.2); Carbon Dioxide 28 mmol/L (22-30); Chloride 98 mmol/L (98-107); Estimated CRCL calculation 37 ml/min; Estimated Glomerular Filt Rate 54; Glucose 250 mg/dL (65-110); Potassium 4.4 mmol/L (3.4-5.0); Sodium 131 mmol/L (137-145)
[2022-07-23 07:52] LABS: INR 1.2; Prothrombin Time 14.3 Seconds (11.1-14.7)
--- NOTE | 2022-07-23 09:11 | WPDCARDPROC ---
Cardiac Cath Procedure Note Date of procedure:: 07/23/22 Performing physician:: Matthew Sykes MD Indication:: chronically implanted pacemaker at EOL Brief clinical history:: this is a 77-year-old woman with a history of paroxysmal AFib and sick sinus syndrome who was a chronically implanted pacemaker. Her device is at EOL Procedure Procedure performed:: explantation of depleted pacemaker pulse generator implantation of new [employer] [place] [employer] dual-chamber pulse generator Sedation/Medication given:: fentanyl 50 mg Versed 2 mg case start time 8:34 a.m. case end time 9:05 a.m. sedation provided by Norma Quintana RN, trained observer Access site:: chronically implanted left chest wall pocket Estimated blood loss:: minimal Procedure note:: patient was brought to the cardiac catheterization lab in the postabsorptive state the left anterior chest wall was prepped and draped a sterile fashion at the location of the chronically implanted pacemaker device. The device was easily palpable and the previous incision was easily identified. 1% lidocaine was then infiltrated just below the original incision for local anesthesia. Using the plasma blade incision was then made over the chronically implanted pocket and the PlasmaBlade was used to dissect the subcutaneous tissue and the fibrous pocket. The electrocautery was used for cutaneous hemostasis. The chronically implanted device was then removed from the pocket and it was visually unremarkable in appearance. The torque wrench was used to disconnect the leads from the depleted generator. The leads were then connected to the new generator detailed below. The pocket was irrigated with antibiotic infused saline. Following this the new generator was connected to the leads using the torque wrench and the assembly was placed back into the chronic pocket. The pocket was then closed in layers using 3-0 Vicryl in an interrupted fashion for the subcutaneous tissue and 4-0 Vicryl in a running subcuticular fashion for the skin. The wound was dressed with an Aquacel dressing she was taken to the holding area stable condition procedure was well tolerated and uncomplicated. Findings:: The explanted pacemaker is a [employer] dual-chamber pacemaker model S6 O2 serial number [id number]. device was originally implanted October 21 2007. the new pacemaker generator is a [employer] dual-chamber [id number]: ESSENTIO MRI DR IS 1 . serial number [id number]. Device is programmed in the DDD mode lower rate limit 60 upper rate limit 130 AV delay 220/400 millisecond. The chronically implanted ventricular lead is a Guidant 4137: Dextrus IS-1 serial number [id number]. R-waves are sensed at 11.3 mV threshold 0.7 volt at 0.4 millisecond impedance 649 Ohm. A chronically implanted atrial lead is a Guidant 4470: Fineline 2 EZ Sterox Bipolar . serial number [id number]. P waves are sensed at 5.1 mV threshold 0.5 volts at 0.4 millisecond impedance 385 Ohms. Conclusion:: 1. Successful uncomplicated explantation of depleted dual-chamber pulse generator 2. successful uncomplicated implantation of [employer] dual-chamber pacemaker pulse generator described above treatment of sick sinus syndrome/ bradycardic 77-year-old patient who also has paroxysmal AF. Matthew Sykes MD FACC
[2022-07-23 09:19] VITALS: BP 126/72; PULSE 74; RESP 17; O2SAT 97
[2022-07-23 09:30] VITALS: BP 126/66; PULSE 74; RESP 20; O2SAT 97
[2022-07-23 09:45] VITALS: BP 136/64; PULSE 72; RESP 19; O2SAT 97
[2022-07-23 10:00] VITALS: BP 121/63; PULSE 71; RESP 19; O2SAT 94
[2022-07-23 10:15] VITALS: BP 114/65; PULSE 73; RESP 15; O2SAT 95
== END 2022-07-23 10:35 | disposition home or self-care (01) ==
PROVIDERS: Visit Provider Specialist
PROC: 0JPT0PZ Removal of Cardiac Rhythm Related Device from Trunk Subcutaneous Tissue and Fascia, Open Approach (ICD-10-PCS; CPT 33228; principal; 2022-07-23 08:30)
DX: Z45.010 Encounter for checking and testing of cardiac pacemaker pulse generator [battery] (principal); I48.0 Paroxysmal atrial fibrillation; I10 Essential (primary) hypertension; E78.5 Hyperlipidemia, unspecified; E11.9 Type 2 diabetes mellitus without complications; K21.9 Gastro-esophageal reflux disease without esophagitis; Z86.718 Personal history of other venous thrombosis and embolism; Z87.891 Personal history of nicotine dependence; Z79.4 Long term (current) use of insulin; Z79.82 Long term (current) use of aspirin; Z79.01 Long term (current) use of anticoagulants
CPT/HCPCS: 33228; 36415; 80053; 85025; 85610; C1785; J0690; J2250; J3010; J3370; J7040

== ENCOUNTER 2022-09-23 15:42 | Outpatient (RCR) | payer MEDICARE, SELFPAY ==
[2022-07-21 08:03] LABS: INR 2.1; Prothrombin Time 22.6 Seconds (11.1-14.7)
[2022-07-22 08:04] LABS: INR 1.5; Prothrombin Time 17.2 Seconds (11.1-14.7)
[2022-08-03 18:17] LABS: INR 1.2; Prothrombin Time 15.3 Seconds (11.1-14.7)
[2022-08-06 12:58] LABS: INR 1.5
[2022-08-07 12:07] LABS: INR 1.7; Prothrombin Time 21.4 Seconds (11.1-14.7)
[2022-08-08 11:37] LABS: INR 1.8; Prothrombin Time 22.6 Seconds (11.1-14.7)
[2022-08-10 08:02] LABS: INR 1.9; Prothrombin Time 23.3 Seconds (11.1-14.7)
[2022-08-14 12:59] LABS: INR 1.8; Prothrombin Time 21.5 Seconds (11.1-14.7)
[2022-08-18 13:07] LABS: INR 2.1; Prothrombin Time 25.4 Seconds (11.1-14.7)
[2022-08-20 16:14] LABS: INR 2.1; Prothrombin Time 24.8 Seconds (11.1-14.7)
[2022-08-25 14:18] LABS: INR 2.2; Prothrombin Time 26.4 Seconds (11.1-14.7)
[2022-09-08 16:00] LABS: INR 2.2; Prothrombin Time 26.2 Seconds (11.1-14.7)
[2022-09-23 16:31] LABS: INR 2.4; Prothrombin Time 27.4 Seconds (11.1-14.7)
== END 2022-10-19 23:59 | disposition home or self-care (01) ==
LOC: ANHLAB 15:42
PROVIDERS: Visit Provider Internal Medicine Cardiovascular Disease
DX: Z51.81 Encounter for therapeutic drug level monitoring (principal); I63.9 Cerebral infarction, unspecified; Z98.890 Other specified postprocedural states; Z79.01 Long term (current) use of anticoagulants
CPT/HCPCS: 36415; 85610

== ENCOUNTER 2022-10-01 10:02 | Emergency (ER) | payer MEDICARE, SELFPAY ==
[2022-10-01] VITALS (28 sets, daily range): BP systolic 125–156; BP diastolic 69–81; PULSE 65–90; RESP 12–23; TEMP 36.9; O2SAT 81–100
--- NOTE | ~2022-10-01 | XR_ITS ---
Clinical Indication: Chest pain PA and lateral views of the chest: Comparison: 05/27/2021 Findings: The lungs are clear, without evidence of focal consolidation or pleural effusion. Suspected COPD. Cardiomediastinal silhouette is stable, with pacemaker device. Bones and soft tissues are unre markable. Impression: COPD. Clear lungs. Reviewed, dictated and finalized at location . Impression: COPD. Clear lungs.
--- NOTE | 2022-10-01 10:11 | ED.CHESTPAIN ---
HPI - Chest Pain General Chief Complaint: Chest Pain Stated Complaint: felt like I was going to pass out Time Seen by Provider: 10/01/22 10:11 Source: patient and old records reviewed Mode of arrival: ambulatory Limitations: no limitations History of Present Illness HPI narrative: Patient is a 77 y/o female, with PMH of AFIB/sick sinus syndrome s/p pacemaker placement, chronic anticoagulation, who presents to the ED with c/o lightheadedness and chest pain. Patient reports she took a friend to the outpatient imaging center this morning. While she was waiting in the parking lot around 8:50 AM, she stood up out of her car and began having severe tinnitus, lightheadedness, and felt near syncopal. She notes a history of chronic tinnitus, but states it became much louder. She also developed tingling in her lips and tongue at that time, as well as chest pressure. She states the chest pressure lasted for approximately 10 minutes before resolving on its own. She describes it as though she had to work to take a deep breath, though denied feeling short of breath or out of breath. She denies any chest pain currently. 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 Pathak, and was advised to come to the ED for further evaluation. Patient denies any BLE pain or swelling, syncope, vision changes, focal weakness, recent cough or cold sx's, fevers, N/V. Patient has a [employer] pacemaker, replaced in July of this year. Patient takes warfarin, last INR was 2.4. Related Data Home Medications Medication Instructions Recorded Confirmed aspirin 81 mg tablet 81 mg PO DAILY 03/16/20 07/22/22 diltiazem HCl 120 mg 120 mg PO HS 03/16/20 07/22/22 capsule,extended release 24 hr, controlled fluticasone propionate 50 2 spray intranasal DAILY PRN 03/16/20 07/22/22 mcg/actuation nasal Congestion spray,suspension insulin aspart U-100 100 unit/mL 1 sliding scale dose subcut 03/16/20 07/22/22 subcutaneous solution (Novolog USEASDIRECTD U-100 Insulin aspart) insulin glargine 100 unit/mL 11 unit subcut HS 03/16/20 07/22/22 subcutaneous solution (Lantus U-100 Insulin) lisinopril 5 mg tablet 5 mg PO HS 03/16/20 07/22/22 omega 3-yrw-tva-fish oil 1,200 mg 1 cap PO BID 03/16/20 07/22/22 (144 mg-216 mg) capsule (Fish Oil) omeprazole 40 mg capsule,delayed 40 mg PO BID PRN Indigestion 03/16/20 07/22/22 release simvastatin 20 mg tablet (Zocor) 20 mg PO HS 03/16/20 07/22/22 warfarin 2 mg tablet 2 mg PO DAILY 03/16/20 07/22/22 warfarin 4 mg tablet 4 mg PO DAILY 03/16/20 07/22/22 B wizweqm-P-axsse acid-Zn 500 1 tablet PO DAILY 07/22/22 07/22/22 mg-400 mcg-15 mg tablet carboxymethylcellulose sodium 1 % 1 drp EACH EYE DAILY 07/22/22 07/22/22 eye liquid gel drops chlordiazepoxide HCl 5 mg capsule 5 - 10 mg PO TID PRN Anxiety 07/22/22 07/22/22 cholecalciferol (vitamin D3) 50 50 mcg PO DAILY 07/22/22 07/22/22 mcg (2,000 unit) tablet cranberry concentrate-ascorbic 1 cap PO DAILY 07/22/22 07/22/22 acid 4,200 mg-20 mg capsule cyanocobalamin (vitamin B-12) 500 500 mcg PO DAILY 07/22/22 07/22/22 mcg tablet cyclobenzaprine 5 mg tablet 5 mg PO TID PRN Back Pain 07/22/22 07/22/22 sodium chloride 5 % eye drops 1 drp EACH EYE DAILY 07/22/22 07/22/22 (Kourtney 128) vitamin A,C,E-co [id number]-[id number] vit#6 1 tablet PO DAILY 07/22/22 07/22/22 5,000 unit-60 mg-30 mg-7.5 mg tablet Allergies Allergy/AdvReac Type Severity Reaction Status Date / Time amoxicillin Allergy Mild Dyspnea / Verified 07/23/22 07:22 SOB codeine Allergy Unknown Shakiness Verified 07/23/22 07:22 nitrofurantoin AdvReac Abdominal Verified 10/01/22 10:29 [From Macrodantin] Pain Sulfa (Sulfonamide AdvReac Abdominal Verified 10/01/22 10:29 Antibiotics) Pain SURGICAL TAPE Allergy Mild Unknown Uncoded 05/27/21 11:32 HEPATITIS B VACCINE Allergy Unknown Unknown Uncoded 05/27/21 11:32 Review of Systems Review of Systems: CONSTITUTIONAL: Denies fever, chills, or swea
--- NOTE | 2022-10-01 10:15 | ECG_ITS ---
Measurements Intervals [place] Rate: 81 P: 39 FL: 120 QRS: -16 QRSD: 93 T: 37 QT: 374 QTc: 436 Interpretive Statements SINUS RHYTHM COMPARED TO ECG 05/27/2021 12:44:14 NO SIGNIFICANT CHANGES Electronically Signed On 10-01-2022 11:51:14 CDT by Cortney Mcmahon M.D.
[2022-10-01 11:40] LABS: Basophils Percent Auto 0.5 % (0.2-1.2); Eosinophils Absolute Auto 0.2 K/mm3 (0-0.3); Hemoglobin 11.9 g/dL (12.0-15.0); Immature Granulocyte Absolute 0.01 K/mm3 (0.00-0.031); Immature Granulocyte Percent A 0.1 % (0-0.5); Lymphocytes Absolute Auto 1.49 K/mm3 (0.9-3.2); Lymphocytes Percent Auto 19.8 % (18.3-44.2); Mean Corpuscular Hemoglobin 30.2 pg (26-34); Mean Corpuscular Volume 88.8 fl (80-100); Mean Platelet Volume 9.3 fl (7.4-10.4); Monocytes Absolute Auto 0.6 K/mm3 (0.1-0.6); Monocytes Percent Auto 8.1 % (2.6-8.5); Neutrophils Absolute Auto 5.2 K/mm3 (1.3-6.7); Neutrophils Percent Auto 69.5 % (45.5-73.1); Platelet Count Result 284 k/mm3 (150-375); Red Blood Count 3.94 M/mm3 (4.2-5.4); Red Cell Distribution Width 12.9 % (11.5-14.5); White Blood Count 7.5 K/mm3 (4.5-10.0)
[2022-10-01 11:49] LABS: Alanine Aminotransferase 26 U/L (6-35); Albumin Level 4.1 g/dL (3.5-5.1); Alkaline Phosphatase 66 U/L (38-126); Anion Gap 6 mmol/L (8-16); Aspartate Amino Transferase 34 U/L (14-36); Bilirubin,Total 0.4 mg/dL (0.2-1.3); Blood Urea Nitrogen 27 mg/dL (7-17); Calcium 9.2 mg/dL (8.4-10.2); Carbon Dioxide 28 mmol/L (22-30); Chloride 101 mmol/L (98-107); Estimated CRCL calculation 40 ml/min; Estimated Glomerular Filt Rate > 60; Glucose 219 mg/dL (65-110); Lipase 220 U/L (23-300); Potassium 4.5 mmol/L (3.4-5.0); Sodium 135 mmol/L (137-145)
[2022-10-01 12:01] LABS: Troponin I < 0.012 ng/mL (0.000-0.034)
[2022-10-01 12:55] LABS: INR 2.2; Prothrombin Time 25.8 Seconds (11.1-14.7)
[2022-10-01 12:56] LABS: Partial Thromboplastin Time 39.5 SECONDS (22.3-36.8)
[2022-10-01] MEDS: SODIUM CHLORIDE 0.9% IV 1,000 ML 999 ML IV CONT (12:59)
[2022-10-01 15:26] LABS: Troponin I < 0.012 ng/mL (0.000-0.034)
== END 2022-10-01 16:45 | disposition home or self-care (01) ==
PROVIDERS: Emergency Provider Physician Assistant; PCP Internal Medicine Cardiovascular Disease
DX: R07.89 Other chest pain (principal); R42 Dizziness and giddiness; H61.23 Impacted cerumen, bilateral; I48.91 Unspecified atrial fibrillation; E11.9 Type 2 diabetes mellitus without complications; K21.9 Gastro-esophageal reflux disease without esophagitis; E78.5 Hyperlipidemia, unspecified; I10 Essential (primary) hypertension; H93.19 Tinnitus, unspecified ear; Z95.0 Presence of cardiac pacemaker; Z86.718 Personal history of other venous thrombosis and embolism; Z87.891 Personal history of nicotine dependence; Z79.01 Long term (current) use of anticoagulants; Z79.4 Long term (current) use of insulin
CPT/HCPCS: 36415; 71046; 80053; 83690; 84484; 85025; 85610; 85730; 93005; 96360; 96361; 99284; J7030

== ENCOUNTER 2023-01-04 10:14 | Outpatient (RCR) | payer MEDICARE, SELFPAY ==
[2022-10-21 17:11] LABS: INR 2.8; Prothrombin Time 31.9 Seconds (11.1-14.7)
[2022-11-03 12:51] LABS: INR 2.3; Prothrombin Time 26.9 Seconds (11.1-14.7)
[2022-11-25 16:58] LABS: INR 2.8; Prothrombin Time 31.8 Seconds (11.1-14.7)
[2022-12-19 13:01] LABS: INR 3.8
[2022-12-26 14:03] LABS: INR 2.2; Prothrombin Time 26.1 Seconds (11.1-14.7)
[2023-01-04 11:09] LABS: INR 2.7; Prothrombin Time 30.4 Seconds (11.1-14.7)
== END 2023-01-19 23:59 | disposition home or self-care (01) ==
LOC: ANHLAB 10:14
PROVIDERS: PCP Internal Medicine Cardiovascular Disease; Visit Provider Internal Medicine Cardiovascular Disease
DX: Z51.81 Encounter for therapeutic drug level monitoring (principal); Z79.01 Long term (current) use of anticoagulants
CPT/HCPCS: 36415; 81001; 85610

== ENCOUNTER 2023-01-04 10:25 | Outpatient (CLI) | payer MEDICARE, SELFPAY ==
[2023-01-04 16:56] LABS: Appearance Urine Clear (Clear); Bacteria Urine None Seen /hpf; Bilirubin Urine Negative (Negative); Blood Urine Negative (Negative); Color Urine Yellow (Yellow); Glucose Urine UA Negative (Negative); Ketones Urine Negative (Negative); Leukocyte Esterase Ur Trace LEU/UL (Negative); Nitrate Urine Negative (Negative); Non Pathogenic Casts 0-2; Protein Urine Negative (Negative); RBC Urine 0-2 /hpf (0-2); Specific Grav Ur 1.014 (1.001-1.035); Squamous Epithelial Cell Urine None seen /hpf (Few); Urobilinogen Urine 0.2 mg/dL (<2.0); WBC Urine 0-5 /hpf; pH Urine 6.5 (5.0-9.0)
[2023-01-04 16:58] LABS: Add Urine Microscopic? YES
== END 2023-01-04 10:26 | disposition home or self-care (01) ==
PROVIDERS: PCP Internal Medicine Cardiovascular Disease
DX: R35.0 Frequency of micturition (principal)
CPT/HCPCS: 81001

== ENCOUNTER 2023-04-21 13:14 | Outpatient (RCR) | payer MEDICARE, SELFPAY ==
[2023-01-28 14:32] LABS: INR 2.5
[2023-03-01 14:31] LABS: INR 2.1; Prothrombin Time 25.4 Seconds (11.1-14.7)
[2023-03-25 11:03] LABS: INR 2.3; Prothrombin Time 27.3 Seconds (11.1-14.7)
[2023-04-21 14:11] LABS: INR 2.2; Prothrombin Time 25.4 Seconds (11.1-14.7)
== END 2023-04-28 23:59 | disposition home or self-care (01) ==
LOC: ANHLAB 13:14
PROVIDERS: PCP Internal Medicine Cardiovascular Disease; Visit Provider Internal Medicine Cardiovascular Disease
DX: Z51.81 Encounter for therapeutic drug level monitoring (principal); Z79.01 Long term (current) use of anticoagulants
CPT/HCPCS: 36415; 85610

== ENCOUNTER 2023-05-05 12:00 | Emergency (ER) | payer MEDICARE, SELFPAY ==
--- NOTE | ~2023-05-05 | CT_ITS ---
EXAMINATION: CT brain wo con DATE: 05/05/2023 14:03 INDICATION: Headache. Left ear pain. Sinus pressure. Intermittent tingling of tongue and lips. TECHNIQUE: Computed tomography (CT) of the head was performed without intravenous contrast. The mA wa s adjusted according to patient size. Iterative reconstruction technique was employed. Exam dose: 60 5.33 mGy-cm total exam DLP. COMPARISON: 03/16/2020 CT brain FINDINGS: Stable chronic high left parietal and left posterior parieto-occipital infarcts. No intracranial mass lesion or hemorrhage, midline shift or mass effect effect or interval new cerebr ovascular accident, midline shift or mass effect is detected. Moderate cerebral and cerebellar volume loss. There is nonspecific diminished attenuation cerebral white matter, likely due to chronic small vessel ischemic changes. Bilateral vertebral artery and particularly prominent bilateral carotid siphon and supraclinoid inter nal carotid artery calcifications. No subdural or epidural hematoma. Middle and inner ear apparatus appear unremarkable. At least 10 mm maxillary sinus polyp or mucous retention cyst is included in the lowermost image. Mil d patchy soft tissue thickening of the ethmoid air cells is noted bilaterally. Included paranasal sin uses and the mastoid air cells are otherwise unremarkable. No fracture or bone destruction of the cranial vault. 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 Reviewed, dictated and finalized at location [facility]. [employer] IMPRESSION: Old high left parietal and posterior left parietal occipital infarc ts Cerebral atherosclerosis and chronic small vessel ischemic changes of the cereb ral white matter
[2023-05-05 12:06] VITALS: BP 138/80; PULSE 82; RESP 20; TEMP 36.1; O2SAT 100
--- NOTE | 2023-05-05 14:20 | ED.GENADULT ---
HPI - General Adult General Chief complaint: Unspecified Stated complaint: E pain, URI Time Seen by Provider: 05/05/23 13:35 History of Present Illness HPI narrative: 78-year-old female presenting to the emergency department for evaluation of left ear pain, dry eyes lightheadedness and sinus pressure. Patient also states that she had some tingling of her lips and tongue yesterday. Patient also reports yesterday she had a smell of perfume for approximately 20 minutes but patient states she no longer wears perfume. Related Data Home Medications Medication Instructions Recorded Confirmed aspirin 81 mg tablet 81 mg PO DAILY 03/16/20 07/22/22 diltiazem HCl 120 mg 120 mg PO HS 03/16/20 07/22/22 capsule,extended release 24 hr, controlled fluticasone propionate 50 2 spray intranasal DAILY PRN 03/16/20 07/22/22 mcg/actuation nasal Congestion spray,suspension insulin aspart U-100 100 unit/mL 1 sliding scale dose subcut 03/16/20 07/22/22 subcutaneous solution (Novolog USEASDIRECTD U-100 Insulin aspart) insulin glargine 100 unit/mL 11 unit subcut HS 03/16/20 07/22/22 subcutaneous solution (Lantus U-100 Insulin) lisinopril 5 mg tablet 5 mg PO HS 03/16/20 07/22/22 omega 9-fpu-opn-fish oil 1,200 mg 1 cap PO BID 03/16/20 07/22/22 (144 mg-216 mg) capsule (Fish Oil) omeprazole 40 mg capsule,delayed 40 mg PO BID PRN Indigestion 03/16/20 07/22/22 release simvastatin 20 mg tablet (Zocor) 20 mg PO HS 03/16/20 07/22/22 warfarin 2 mg tablet 2 mg PO DAILY 03/16/20 07/22/22 warfarin 4 mg tablet 4 mg PO DAILY 03/16/20 07/22/22 B kmpaebl-W-fomtk acid-Zn 500 1 tablet PO DAILY 07/22/22 07/22/22 mg-400 mcg-15 mg tablet carboxymethylcellulose sodium 1 % 1 drp EACH EYE DAILY 07/22/22 07/22/22 eye liquid gel drops chlordiazepoxide HCl 5 mg capsule 5 - 10 mg PO TID PRN Anxiety 07/22/22 07/22/22 cholecalciferol (vitamin D3) 50 50 mcg PO DAILY 07/22/22 07/22/22 mcg (2,000 unit) tablet cranberry concentrate-ascorbic 1 cap PO DAILY 07/22/22 07/22/22 acid 4,200 mg-20 mg capsule cyanocobalamin (vitamin B-12) 500 500 mcg PO DAILY 07/22/22 07/22/22 mcg tablet cyclobenzaprine 5 mg tablet 5 mg PO TID PRN Back Pain 07/22/22 07/22/22 sodium chloride 5 % eye drops 1 drp EACH EYE DAILY 07/22/22 07/22/22 (Kourtney 128) vitamin A,C,E-co [id number] vit#6 1 tablet PO DAILY 07/22/22 07/22/22 5,000 unit-60 mg-30 mg-7.5 mg tablet Allergies Allergy/AdvReac Type Severity Reaction Status Date / Time amoxicillin Allergy Mild Dyspnea / Verified 05/05/23 13:10 SOB codeine Allergy Unknown Shakiness Verified 05/05/23 13:10 nitrofurantoin AdvReac Abdominal Verified 05/05/23 13:10 [From Macrodantin] Pain Sulfa (Sulfonamide AdvReac Abdominal Verified 05/05/23 13:10 Antibiotics) Pain SURGICAL TAPE Allergy Mild Unknown Uncoded 05/05/23 13:11 HEPATITIS B VACCINE Allergy Unknown Unknown Uncoded 05/05/23 13:11 Review of Systems Review of Systems: All systems reviewed & are unremarkable except as noted in HPI and below PMFSH Past Medical History Medical History DVT (deep venous thrombosis) History of diabetes mellitus History of gastroesophageal reflux (GERD) History of hyperlipidemia History of hypertension Pacemaker Surgical History Surgical History History of orthopedic surgery Social History Social History Smoking packs per day: 0.5 Smoking cigarettes per day: 10.0 Years smoked: 20 Smoking pack-years: 10.00 Smoking status: Former smoker Tobacco type: cigarettes Additional smoking assessment comments: quit 1979 Alcohol intake: never Substance use: never Substance use type: does not use Living arrangements: with family Gender identity (if verbalized by the patient): Female Spiritual care concerns: No Exam
[2023-05-05 14:31] LABS: Influenza A QL RT-PCR Negative (Negative); Influenza B QL RT-PCR Negative (Negative); RSV RNA, RT-PCR Negative (Negative); SARS-CoV-2 RNA PCR Negative (Negative)
[2023-05-05 15:09] VITALS: BP 130/80; PULSE 82; RESP 20; TEMP 36.6; O2SAT 100
== END 2023-05-05 15:10 | disposition home or self-care (01) ==
PROVIDERS: Emergency Provider Emergency Medicine
DX: H61.20 Impacted cerumen, unspecified ear (principal); R09.81 Nasal congestion; Z20.822 Contact with and (suspected) exposure to COVID-19; Z86.718 Personal history of other venous thrombosis and embolism; Z79.01 Long term (current) use of anticoagulants; E11.9 Type 2 diabetes mellitus without complications; Z79.4 Long term (current) use of insulin; K21.9 Gastro-esophageal reflux disease without esophagitis; E78.5 Hyperlipidemia, unspecified; I10 Essential (primary) hypertension; Z95.0 Presence of cardiac pacemaker
CPT/HCPCS: 70450; 87637; 99284

== ENCOUNTER 2023-08-20 12:28 | Outpatient (RCR) | payer MEDICARE, SELFPAY ==
[2023-05-25 13:56] LABS: INR 2.9; Prothrombin Time 32.4 Seconds (11.1-14.7)
[2023-06-18 12:03] LABS: INR 2.1; Prothrombin Time 25.1 Seconds (11.1-14.7)
[2023-07-20 14:39] LABS: INR 2.5; Prothrombin Time 28.6 Seconds (11.1-14.7)
[2023-08-20 13:42] LABS: INR 2.4
== END 2023-08-23 23:59 | disposition home or self-care (01) ==
LOC: ANHLAB 12:28
PROVIDERS: Visit Provider Internal Medicine Cardiovascular Disease
DX: Z51.81 Encounter for therapeutic drug level monitoring (principal); Z79.01 Long term (current) use of anticoagulants
CPT/HCPCS: 36415; 85610

== ENCOUNTER 2023-10-21 09:37 | Outpatient (RCR) | payer MEDICARE, SELFPAY ==
[2023-09-10 14:06] LABS: INR 2.9
[2023-09-27 12:11] LABS: INR 3.1
[2023-10-13 11:11] LABS: INR 3.9; Prothrombin Time 38.7 Seconds (11.1-14.7)
== END 2023-12-09 23:59 | disposition home or self-care (01) ==
LOC: ANHLAB 09:37
PROVIDERS: Visit Provider Internal Medicine Cardiovascular Disease
DX: Z51.81 Encounter for therapeutic drug level monitoring (principal); Z79.01 Long term (current) use of anticoagulants
CPT/HCPCS: 36415; 85610

== ENCOUNTER 2023-11-07 13:31 | Emergency (ER) | payer MEDICARE, SELFPAY ==
--- NOTE | ~2023-11-07 | XR_ITS ---
Right wrist Technique: PA, oblique, lateral, and ulnar deviation views were obtained. Clinical History: Pain Findings: No acute fracture or dislocation is seen. Osseous alignment is anatomic. There is moderate degenerative change of the first CMC joint. There is mild degenerative change of the triscaphe joint. Soft tissues are unremarkable. Impression: Degenerative changes, as above. No acute fracture or dislocation. Reviewed, dictated and finalized at location . Impression: Degenerative changes, as above. No acute fracture or dislocation.
--- NOTE | ~2023-11-07 | XR_ITS ---
Right elbow Technique: AP, oblique, and lateral views were obtained. Clinical History: Pain Findings: There is an acute, transverse, essentially nondisplaced fracture of the proximal radial nec k. No intra-articular extension evident.. Joint spaces are preserved. There is elbow joint effusion, with associated displacement of the anterior fat pad. Impression: Acute, transverse, nondisplaced fracture the proximal radial neck. Associated elbow joint effusion. Reviewed, dictated and finalized at location . Impression: Acute, transverse, nondisplaced fracture the proximal radial neck. Associated elbow joint effusion.
[2023-11-07 13:33] VITALS: BP 145/64; PULSE 82; RESP 18; TEMP 36.6; O2SAT 99
--- NOTE | 2023-11-07 14:46 | ED.FALL ---
HPI - Fall General Chief Complaint: Fall Stated Complaint: fall Time Seen by Provider: 11/07/23 14:10 Source: patient Mode of arrival: ambulatory Limitations: no limitations History of Present Illness HPI Narrative: This is a 78-year-old female that presents to the emergency department for right elbow pain after a fall. Reports yesterday she was walking around a restaurant. She was unsure what caused her to fall. But she fell onto her right wrist and elbow. Since has been having pain in the right wrist and elbow. Worse with range of motion and relieved with rest. She did not hit her head or lose consciousness. Denies any other injuries or focal areas of pain. Related Data Home Medications Medication Instructions Recorded Confirmed aspirin 81 mg tablet 81 mg PO DAILY 03/16/20 10/27/23 diltiazem HCl 120 mg 120 mg PO HS 03/16/20 10/27/23 capsule,extended release 24 hr, controlled fluticasone propionate 50 2 spray intranasal DAILY PRN 03/16/20 10/27/23 mcg/actuation nasal Congestion spray,suspension insulin glargine 100 unit/mL 11 unit subcut HS 03/16/20 10/27/23 subcutaneous solution (Lantus U-100 Insulin) lisinopril 5 mg tablet 5 mg PO HS 03/16/20 10/27/23 omega 2-zmu-gch-fish oil 1,200 mg 1 cap PO BID 03/16/20 10/27/23 (144 mg-216 mg) capsule (Fish Oil) omeprazole 40 mg capsule,delayed 40 mg PO BID PRN Indigestion 03/16/20 10/27/23 release simvastatin 20 mg tablet (Zocor) 20 mg PO HS 03/16/20 10/27/23 warfarin 2 mg tablet 2 mg PO DAILY 03/16/20 10/27/23 warfarin 4 mg tablet 4 mg PO DAILY 03/16/20 10/27/23 B qgimfkb-D-zqpej acid-Zn 500 1 tablet PO DAILY 07/22/22 10/27/23 mg-400 mcg-15 mg tablet carboxymethylcellulose sodium 1 % 1 drp EACH EYE DAILY 07/22/22 10/27/23 eye liquid gel drops chlordiazepoxide HCl 5 mg capsule 5 - 10 mg PO TID PRN Anxiety 07/22/22 10/27/23 cholecalciferol (vitamin D3) 50 50 mcg PO DAILY 07/22/22 10/27/23 mcg (2,000 unit) tablet cranberry concentrate-ascorbic 1 cap PO DAILY 07/22/22 10/27/23 acid 4,200 mg-20 mg capsule cyanocobalamin (vitamin B-12) 500 500 mcg PO DAILY 07/22/22 10/27/23 mcg tablet cyclobenzaprine 5 mg tablet 5 mg PO TID PRN Back Pain 07/22/22 10/27/23 sodium chloride 5 % eye drops 1 drp EACH EYE DAILY 07/22/22 10/27/23 (Kourtney 128) vitamin A,C,E-co S44-[id number] vit#6 1 tablet PO DAILY 07/22/22 10/27/23 5,000 unit-60 mg-30 mg-7.5 mg tablet insulin lispro 100 unit/mL 1 sliding scale dose subcut 06/17/23 10/27/23 subcutaneous cartridge (Humalog USEASDIRECTD U-100 Insulin) alpha lipoic acid 300 mg capsule 300 mg PO DAILY 10/27/23 10/27/23 Allergies Allergy/AdvReac Type Severity Reaction Status Date / Time amoxicillin Allergy Mild Dyspnea / Verified 10/27/23 10:33 SOB codeine Allergy Unknown Shakiness Verified 10/27/23 10:33 nitrofurantoin AdvReac Abdominal Verified 10/27/23 10:33 [From Macrodantin] Pain Sulfa (Sulfonamide AdvReac Abdominal Verified 10/27/23 10:33 Antibiotics) Pain SURGICAL TAPE Allergy Mild Unknown Uncoded 10/27/23 10:33 HEPATITIS B VACCINE Allergy Unknown Unknown Uncoded 10/27/23 10:33 Review of Systems Review of Systems: CONSTITUTIONAL: Denies fever MUSCULOSKELETAL: Reports joint pain, and myalgia. NEUROLOGIC: Denies numbness All systems reviewed & are unremarkable except as noted in HPI and below PMFSH Past Medical History Medical History DVT (deep venous thrombosis) History of diabetes mellitus History of gastroesophageal reflux (GERD) History of hyperlipidemia History of hypertension Pacemaker Surgical History Surgical History History of orthopedic surgery Social History Social History Smoking packs per day: 0.5 Smoking cigarettes per day: 10.0 Years smoked: 20 Smoking pack-years: 10.00 Smoking status:
== END 2023-11-07 15:31 | disposition home or self-care (01) ==
PROVIDERS: Emergency Provider Physician Assistant
DX: S52.134A Nondisplaced fracture of neck of right radius, initial encounter for closed fracture (principal); E11.9 Type 2 diabetes mellitus without complications; E78.5 Hyperlipidemia, unspecified; I10 Essential (primary) hypertension; Z86.718 Personal history of other venous thrombosis and embolism; Z87.891 Personal history of nicotine dependence; W19.XXXA Unspecified fall, initial encounter
CPT/HCPCS: 73080; 73110; 99284; A4565

== ENCOUNTER 2024-01-08 11:59 | Outpatient (RCR) | payer MEDICARE, SELFPAY ==
[2023-10-21 10:14] LABS: INR 2.3
[2023-11-16 16:23] LABS: Prothrombin Time 31.7 Seconds (11.1-14.7)
[2023-12-10 14:09] LABS: INR 3.2; Prothrombin Time 33.3 Seconds (11.1-14.7)
[2023-12-27 13:20] LABS: Prothrombin Time 31.3 Seconds (11.1-14.7)
[2024-01-08 12:21] LABS: INR 2.8; Prothrombin Time 30.2 Seconds (11.1-14.7)
== END 2024-01-19 23:59 | disposition home or self-care (01) ==
LOC: ANHLAB 11:59
PROVIDERS: Visit Provider Specialist
DX: Z51.81 Encounter for therapeutic drug level monitoring (principal); Z79.01 Long term (current) use of anticoagulants
CPT/HCPCS: 36415; 85610

== ENCOUNTER 2024-04-21 15:15 | Outpatient (RCR) | payer MEDICARE, SELFPAY ==
[2024-02-04 14:59] LABS: INR 2.9; Prothrombin Time 30.5 Seconds (11.1-14.7)
[2024-02-25 12:39] LABS: INR 2.1; Prothrombin Time 24.5 Seconds (11.1-14.7)
[2024-03-03 13:25] LABS: INR 3.3; Prothrombin Time 33.5 Seconds (11.1-14.7)
[2024-03-11 10:11] LABS: INR 3.1; Prothrombin Time 32.7 Seconds (11.1-14.7)
[2024-03-17 12:48] LABS: INR 3.6; Prothrombin Time 36.5 Seconds (11.1-14.7)
[2024-03-21 11:31] LABS: INR 1.1; Prothrombin Time 14.9 Seconds (11.1-14.7)
[2024-03-27 11:30] LABS: INR 1.9
[2024-04-03 13:18] LABS: INR 2.7; Prothrombin Time 29.7 Seconds (11.1-14.7)
[2024-04-21 15:48] LABS: INR 3.6
== END 2024-05-04 23:59 | disposition home or self-care (01) ==
LOC: ANHLAB 15:15
PROVIDERS: Visit Provider Specialist
DX: Z51.81 Encounter for therapeutic drug level monitoring (principal); Z79.01 Long term (current) use of anticoagulants
CPT/HCPCS: 36415; 85610

== ENCOUNTER 2024-08-14 15:53 | Outpatient (RCR) | payer MEDICARE, SELFPAY ==
[2024-05-27 13:19] LABS: INR 3.7; Prothrombin Time 37.2 Seconds (11.1-14.7)
[2024-06-17 13:40] LABS: INR 2.9; Prothrombin Time 30.9 Seconds (11.1-14.7)
[2024-06-24 11:57] LABS: Prothrombin Time 31.7 Seconds (11.1-14.7)
[2024-08-14 20:13] LABS: INR 2.2
== END 2024-08-25 23:59 | disposition home or self-care (01) ==
LOC: ANHLAB 15:53
PROVIDERS: Visit Provider Specialist
DX: Z51.81 Encounter for therapeutic drug level monitoring (principal); Z79.01 Long term (current) use of anticoagulants
CPT/HCPCS: 36415; 85610